=== PATIENT | male | born 1950 | race Caucasian/White ===

== ENCOUNTER → 2016-10-04 | Outpatient (CLI) | payer OTHER ==
[~2016-10-04] MED LIST: ACHD5005 PO; ATR20T PO; CYCL-97 PO; IBP800T PO; IBUP-2055 PO; INSU100C4 SQ; INSU100V16 SQ; LISINOPRIL; LISINOPRIL 10 MG PO; MULT-974 PO; NF-ESOM40C PO; PGLT30T PO; PIOG45TA7 PO; novalog SQ
--- OUTSIDE RECORDS SUMMARY | 2016-10-04 15:33 | XMS REPORT | Continuity of Care Document ---
Author Author [facility] Organization [facility] Address Unknown Phone Unavailable Care Team Providers Care Shrimp Peeler Name Role Phone ADRIANA MCCARTHY MD PP Insurance Providers Payer Name Policy Number Subscriber Name Relationship Self Pay Irineo Booth Self / Same As Patient Advance Directives Directive Response Recorded Date Advance Directives N 04/27/13 8:09pm Organ Donor Y 04/27/13 8:09pm Problems No Known Problems or Medical conditions. Social History History Response Recorded Date/Time Alcohol Use Denies Use 04/27/13 8:09pm Recreational Drug Use N 04/27/13 8:09pm Allergies, Adverse Reactions, Alerts Allergen Type Severity Reaction Last Updated No Known Drug Allergies 04/27/13 Medications Medication Dose Units Route Sig Qty Days Ibuprofen (Motrin) 800 Mg PO Q8HR PRN 20 Hydrocodone Bit/Acetaminophen (Hydrocodon-Acetaminophen 5-325) 1 Each PO Q4H PRN 10 Cyclobenzaprine HCl (Flexeril) 1 Tab PO Q8HR PRN 10 [novalog] 46 SQ DAILY Insulin Glargine,Hum.rec.anlog (Lantus) 37 Unit SQ HS Multivitamin (Multi Vitamin Daily) 1 Each PO DAILY Atorvastatin Calcium (Lipitor 20MG) 1 Each PO DAILY Esomeprazole Magnesium (Nexium) 1 Cap PO DAILY 30 Pioglitazone HCl (Actos) 45 Mg PO DAILY Response Recorded Date/Time Status not known Unknown Results No Known Relevant Diagnostic Tests, Laboratory Data and/or Discharge Summary. Encounters Encounter Location Date/Time Departed Emergency Room [facility] 7:57pm
--- NOTE | 2016-10-04 16:50 | Diagnostic Imaging Report ---
PROCEDURE: MRI right joint lower extremity without contrast. TECHNIQUE: Multiplanar, multisequence non contrast-enhanced MRI of the right lower extremity was accomplished. INDICATION: Fell, medial knee pain. There are no previous studies available for comparison. FINDINGS: On the coronal fat-saturated series, there is diffusely increased signal throughout the medial femoral condyle and the medial aspect of the distal femur. This appearance is most likely due to bone edema from a recent contusion and/or microfracture. There is also some edema/inflammation of the soft tissues along the anteromedial aspect of the knee joint. There is also a small amount of bone edema involving the lateral aspect of the lateral femoral condyle. No other bony abnormality is appreciated. There is slight irregularity of the inferior articular surface of the posterior horn of the lateral meniscus. I suspect that this portion of the meniscus is frayed. There is also a vague area of increased signal within the substance of the posterior horn of the medial meniscus. This finding is more likely due to degenerative disease than to a tear. The anterior and posterior cruciate ligaments were not particularly well visualized but appear to be intact. The quadriceps and infrapatellar tendons, the collateral ligaments, the biceps femoris tendon and the iliotibial band are unremarkable for an acute injury. The medial retinaculum has somewhat of an attenuated appearance but there is no clear evidence for a tear. The lateral retinaculum is intact. There is a small joint effusion present. There is no sign of a Avila's cyst. IMPRESSION: 1. There is a sizable area of bone edema involving the medial femoral condyle and the medial aspect of the distal femur. A small area of bone edema is also in the lateral femoral condyle. These findings are most likely due to a recent contusion and/or microfracture. No other acute bony abnormality is noted. 2. There is also soft tissue edema along the anteromedial aspect of the knee joint. The medial retinaculum has an attenuated appearance but appears to be intact. A small joint effusion is also seen. 3. The inferior articular surface of the posterior horn of the lateral meniscus is frayed. The medial meniscus is intact. 4. The major ligaments and tendons show no evidence for an acute injury. Dictated by: Dictated on workstation # [id number]
== END ==
LOC: RAD 15:29
PROVIDERS: ATTEND Nurse Practitioner
DX: S83.231A Complex tear of medial meniscus, current injury, right knee, initial encounter (principal); W19.XXXA Unspecified fall, initial encounter; Y99.8 Other external cause status
CPT/HCPCS: 73721

== ENCOUNTER → 2020-12-11 | Outpatient (CLI) | payer MEDICARE, OTHER ==
[~2020-12-11] MED LIST changes: -IBUP-2055 PO; +IBUP-2473 PO
== END ==
LOC: RAD 10:44
PROVIDERS: ATTEND Orthopaedic Surgery Orthopaedic Surgery of the Spine
DX: Z53.9 Procedure and treatment not carried out, unspecified reason (principal); M54.9 Dorsalgia, unspecified

== ENCOUNTER → 2021-08-06 | Outpatient (CLI) | payer MEDICARE | LOC: LABNPT 07:23 | PROVIDERS: ATTEND Orthopaedic Surgery Orthopaedic Surgery of the Spine | DX: Z20.822 Contact with and (suspected) exposure to COVID-19 (principal) | CPT/HCPCS: 87635 ==

== ENCOUNTER 2021-09-13 06:41 | Outpatient (CLI) | payer MEDICARE ==
[~2021-09-13] VITALS: Ht 170.2 cm; Wt 111.1 kg
[2021-09-13] MEDS ORDERED: LISI20TA26 PO (13:46)
[2021-09-13] MEDS ORDERED: ATOR40TA70 PO (13:46)
[2021-09-13] MEDS ORDERED: ESOM20CA37 PO (13:47)
== END 2021-09-13 14:15 | disposition home or self-care (01) ==
LOC: PREOP 06:41
PROVIDERS: ATTEND Surgery
DX: Z01.818 Encounter for other preprocedural examination (principal)

== ENCOUNTER 2021-09-21 10:55 | Day surgery (SDC) | payer MEDICARE ==
[~2021-09-21] VITALS: Ht 170 cm; Wt 111.1 kg
[~2021-09-21 10:55] MED LIST changes: +ATOR40TA70 PO; +ESOM20CA37 PO; +LISI20TA26 PO
[2021-09-21] MEDS ORDERED: LACTATED RINGERS 1,000 ML IV STA (10:57)
[2021-09-21 11:00] VITALS: BP 127/90
[2021-09-21] MEDS ORDERED: LACTATED RINGERS 1,000 ML IV ONE (11:01)
--- NOTE | 2021-09-21 11:13 | Progress Note-Pre Operative ---
Pre-Operative Progress Note H&P Reviewed The H&P was reviewed, patient examined and no changes noted. Date Seen by Provider: Sep 21, 2021 Time Seen by Provider: 11:13 Date H&P Reviewed: Sep 21, 2021 Time H&P Reviewed: 11:13 Pre-Operative Diagnosis: +cologuaSHANELLE Cooney DO Sep 21, 2021 11:13
[2021-09-21] MEDS ORDERED: PROPOFOL INJECTION 50 ML IV ONE (12:04)
--- NOTE | 2021-09-21 12:24 | Progress Note-Post Operative ---
Post-Operative Progess Note Surgeon (s)/[employer]man (s) Surgeon SHANELLE CAMARENA DO [employer]: N/A Pre-Operative Diagnosis +cologuard Post-Operative Diagnosis Colon polyp Procedure & Operative Findings Date of Procedure 09/21/21 Procedure Performed/Findings Colonoscopy with snare polypectomy x1 Anesthesia Type per TERRAZZO POLISHER Estimated Blood Loss Estimated blood loss (mL): none Specimens/Packing Specimens Removed sigmoid polyp x1 30cm SHANELLE CAMARENA DO Sep 21, 2021 12:24
--- NOTE | 2021-09-21 12:25 | Discharge Inst-Simple/Standard ---
Discharge Inst-Standard Patient Instructions/Follow Up Plan of Care/Instructions/FU: 2 weeks gorge Activity as Tolerated: Yes Discharge Diet: Regular Diet SHANELLE CAMARENA DO Sep 21, 2021 12:25
[2021-09-21 12:26] VITALS: BP 92/50
[2021-09-21 12:31] VITALS: BP 89/51
[2021-09-21 12:35] VITALS: BP 108/60
[2021-09-21 13:05] VITALS: BP 128/59
[2021-09-21 13:22] VITALS: BP 128/59
--- NOTE | 2021-09-21 14:18 | Anesthesia-General Post-Op ---
MAC Patient Condition Mental Status/LOC: Same as Preop Cardiovascular: Satisfactory Nausea/Vomiting: Absent Respiratory: Satisfactory Pain: Controlled Complications: Absent Post Op Complications Complications None Follow Up Care/Instructions Patient Instructions None needed. Anesthesiology Discharge Order Discharge Order Patient is doing well, no complaints, stable vital signs, no apparent adverse anesthesia problems. No complications reported per nursing. LAWRENCE BLUM CRNA Sep 21, 2021 14:18
--- NOTE | 2021-09-21 16:57 | OPERATIVE REPORT ---
DATE OF SERVICE: 09/21/2021 PREOPERATIVE DIAGNOSIS: Positive Cologuard. POSTOPERATIVE DIAGNOSIS: Sigmoid colon polyp. PROCEDURES PERFORMED: Colonoscopy with snare polypectomy x1. SURGEON: Shanelle Benitez DO. ANESTHESIA: Per MAXILLOFACIAL SURGEON. ESTIMATED BLOOD LOSS: None. COMPLICATIONS: None. INDICATIONS FOR PROCEDURE: The patient is a 71-year-old male with a positive Cologuard test. He understands the risks and benefits of the procedure and wished to proceed with procedure. Consent was signed in the chart. DESCRIPTION OF PROCEDURE: The patient was taken to the endoscopy suite and placed in a left lateral recumbent position. A timeout was performed. Digital rectal exam was performed. No palpable polyps, masses or ulcerations. Scope was inserted in the rectum and advanced all the way to cecum with minimal difficulty. Prep was adequate. Scope was slowly retracted back. No polyps, masses or ulcerations within the cecum, ascending, transverse, and descending colon. In the sigmoid colon, a larger polyp was present, which snare polypectomy was performed. This was then suctioned, but unable to be suctioned and had to be withdrawn and the scope was then reinserted and advanced up to the area of the location of the polypectomy and then the scope was then slowly retracted back. No polyps, masses or ulcerations within the remainder of the sigmoid colon and rectum. Scope was retroflexed noting no other pathology. Scope was returned to its normal position, slowly withdrawn until completely removed. The patient tolerated the procedure well without any complications and she was taken to recovery room in stable condition. RECOMMENDATIONS: The patient will have repeat colonoscopy in one year due to the size of polyps. He will follow up in our office in two weeks to go over pathology. Any issues before that will be seen at that time. CC: Dr. Connell - requested, unable to deliver. Job ID: [id number] DocumentID: [id number] Dictated Date: 09/21/2021 12:27:04 Chain Pegger Date: 09/21/2021 16:57:21 Dictated By: SHANELLE BENITEZ DO
== END 2021-09-21 13:22 | disposition home or self-care (01) ==
LOC: ENDO 10:55
PROVIDERS: ATTEND Surgery
DX: K51.40 Inflammatory polyps of colon without complications (principal); E11.40 Type 2 diabetes mellitus with diabetic neuropathy, unspecified; I10 Essential (primary) hypertension; E78.00 Pure hypercholesterolemia, unspecified; K21.9 Gastro-esophageal reflux disease without esophagitis; Z79.4 Long term (current) use of insulin; Z79.899 Other long term (current) drug therapy; Z79.84 Long term (current) use of oral hypoglycemic drugs
CPT/HCPCS: 88305

== ENCOUNTER 2022-11-30 05:34 | Outpatient (CLI) | payer MEDICARE ==
[~2022-11-30] VITALS: Ht 170.2 cm; Wt 108.9 kg
[2022-12-02] MEDS ORDERED: GLUC1AUT2 SQ (12:00)
== END 2022-12-02 12:01 | disposition home or self-care (01) ==
LOC: PREOP 05:34
PROVIDERS: ATTEND Surgery
DX: Z01.818 Encounter for other preprocedural examination (principal)

== ENCOUNTER 2022-12-13 07:07 | Day surgery (SDC) | payer MEDICARE ==
[~2022-12-13] VITALS: Ht 170.2 cm; Wt 108.9 kg
[~2022-12-13 07:07] MED LIST changes: +GLUC1AUT2 SQ
[2022-12-13] MEDS ORDERED: LACTATED RINGERS 1,000 ML IV STA (07:13)
[2022-12-13 07:30] VITALS: BP 131/76
[2022-12-13] MEDS ORDERED: PROPOFOL INJECTION 50 ML IV ONE (07:55)
[2022-12-13 08:10] VITALS: BP 103/49
--- NOTE | 2022-12-13 08:13 | Discharge Inst-Simple/Standard ---
Discharge Inst-Standard Patient Instructions/Follow Up Plan of Care/Instructions/FU: five years gorge, any issue before that be seen at that time. Activity as Tolerated: Yes Discharge Diet: Regular Diet SHANELLE CAMARENA DO December 13, 2022 08:13
--- NOTE | 2022-12-13 08:14 | Progress Note-Post Operative ---
Post-Operative Progess Note Surgeon (s)/Middleware Consultant (s) Surgeon SHANELLE CAMARENA DO Middleware Consultant: na Pre-Operative Diagnosis hx of polyps Post-Operative Diagnosis normal colon Procedure & Operative Findings Date of Procedure 12/13/22 Procedure Performed/Findings colonoscopy Anesthesia Type per ACID WASH OPERATOR Estimated Blood Loss Estimated blood loss (mL): none Specimens/Packing Specimens Removed none SHANELLE CAMARENA DO December 13, 2022 08:14
[2022-12-13 08:15] VITALS: BP 95/52
[2022-12-13 08:20] VITALS: BP 111/59
[2022-12-13 08:50] VITALS: BP 111/59
--- NOTE | 2022-12-13 12:00 | Anesthesia-General Post-Op ---
MAC Patient Condition Mental Status/LOC: Same as Preop Cardiovascular: Satisfactory Nausea/Vomiting: Absent Respiratory: Satisfactory Pain: Controlled Complications: Absent Post Op Complications Complications None Follow Up Care/Instructions Patient Instructions None needed. Anesthesiology Discharge Order Discharge Order Patient is doing well, no complaints, stable vital signs, no apparent adverse anesthesia problems. No complications reported per nursing. ANTONIO AVINA CRNA December 13, 2022 12:00
--- NOTE | 2022-12-13 13:54 | OPERATIVE REPORT ---
DATE OF SERVICE: 12/13/2022 PREOPERATIVE DIAGNOSIS: History of polyps. POSTOPERATIVE DIAGNOSIS: Normal colon. PROCEDURE: Colonoscopy. SURGEON: Shanelle Benitez DO ANESTHESIA: Per SUPERINTENDENT NONSELLING. ESTIMATED BLOOD LOSS: None. COMPLICATIONS: None. INDICATIONS: The patient is a 72-year-old male with history of polyps, needs colonoscopy for further evaluation. He understands risks and benefits and wished to proceed. Consent was signed in chart. DESCRIPTION OF PROCEDURE: The patient was taken to the endoscopy suite, placed in left lateral recumbent position. Timeout was performed. Digital rectal exam was performed. No palpable polyps, masses or ulcerations. Scope was inserted in the rectum all the way to the cecum with minimal difficulty. Prep was adequate. Scope was then slowly retracted back. No polyps, masses or ulcerations in the cecum, ascending, transverse, descending, sigmoid colon. Once in the rectum, scope was retroflexed noting no other pathology. Scope was returned to its normal position, slowly withdrawn until completely removed. The patient tolerated the procedure well without complications, taken to recovery room in stable condition. RECOMMENDATIONS: The patient will repeat colonoscopy in 5 years. Any issues before that, be seen at that time. Job ID: [id number] DocumentID: [id number] Dictated Date: 12/13/2022 08:11:18 Air Carrier Operations Inspector Date: 12/13/2022 13:52:00 Dictated By: SHANELLE BENITEZ DO
== END 2022-12-13 08:53 | disposition home or self-care (01) ==
LOC: ENDO 07:07
PROVIDERS: ATTEND Surgery
DX: Z12.11 Encounter for screening for malignant neoplasm of colon (principal); Z86.010 Personal history of colon polyps; E66.9 Obesity, unspecified; E11.9 Type 2 diabetes mellitus without complications; K21.9 Gastro-esophageal reflux disease without esophagitis; Z79.4 Long term (current) use of insulin; Z79.84 Long term (current) use of oral hypoglycemic drugs; Z68.37 Body mass index [BMI] 37.0-37.9, adult
CPT/HCPCS: 82947; G0105